=== PATIENT | male | born 1960 | race Caucasian/White ===

== ENCOUNTER → 2017-12-05 07:07 | Outpatient (CLI) | payer MEDICAID, SELFPAY ==
[2017-12-05 07:56] LABS: Abs Immature Grans 0.05 k/cumm (0.0-0.09); Absolute Basophil Count 0.02 k/cumm (0.0-0.2); Absolute Eosinophil Count 0.08 k/cumm (0.0-0.7); Absolute Lymphocyte Count 0.65 k/cumm (1.2-3.4); Absolute Monocyte Count 0.67 k/cumm (0.11-0.7); Absolute Neutrophil Count 5.15 k/cumm (1.2-6.7); Basophils % 0.3; Eosinophils % 1.2; HCT 45.1 % (40.0-50.0); HGB 15.4 g/dL (13.5-17.5); Immature Grans % 0.8; Lymphocytes % 9.8; Mean Corp. HGB Concentration 34.1 g/dL (32.0-36.0); Mean Corpuscular Hemoglobin 32.4 pg (27.0-33.0); Mean Corpuscular Volume 94.7 fL (80-95); Mean Platelet Volume 10.4 fL (8.0-11.0); Monocytes % 10.1; Neutrophils % 77.8; Platelet Count 189 x1000/uL (130-400); RBC 4.76 m/cumm (4.50-6.00); RBC Distribution Width 14.2 % (11.8-14.1); White Blood Cell Count 6.62 k/cumm (4.4-10.8)
[2017-12-05 08:15] LABS: ALT 50 U/L (12-78); AST 39 U/L (15-37); Albumin 3.6 g/dL (3.4-5.0); Alkaline Phosphatase 66 U/L (46-116); Anion Gap 9.4 mmol/L (3-11); BUN 15 mg/dL (7-18); Bilirubin, Total 0.5 mg/dL (0.2-1.0); CO2 27.6 mmol/L (21.0-32.0); CREATININE 0.91 mg/dL (0.70-1.30); Calcium 8.4 mg/dL (8.5-10.1); Chloride 103 mmol/L (98-107); Glucose 93 mg/dL (70-100); Potassium 4.2 mmol/L (3.5-5.1); Sodium 140 mmol/L (136-145); Total Protein 7.1 g/dL (6.4-8.2)
[2017-12-05 08:21] LABS: TSH 3.52 uIU/mL (0.358-3.74)
== END ==
PROVIDERS: PCP Family Medicine; Visit Provider Nurse Practitioner Adult Health
DX: C76.0 Malignant neoplasm of head, face and neck (principal); C09.9 Malignant neoplasm of tonsil, unspecified; E03.9 Hypothyroidism, unspecified
CPT/HCPCS: 36415; 80053; 83735; 84443; 85025

== ENCOUNTER → 2017-12-16 01:46 | Outpatient (CLI) | payer MEDICAID, SELFPAY ==
[2017-12-16] MEDS: Omnipaque 350 MG/ML 100 ML BTL IJ (11:37)
--- NOTE | 2017-12-16 11:40 | DI.RPTCT_ITS ---
SYMPTOM/DIAGNOSIS: H/O HEAD AND NECK CA, S/P TREATMENT, F/U, EVALUATE FOR RECURRENCE OR METS, C09.[address]: Comparison is made with 08/12/16. Images were performed from above the internal auditory canals through the aortic arch after IV contrast. No tonsillar mass or fluid collection is visible. Enlarged lymph node on the left side of the neck is no longer seen. A chronic appearing deformity of the thyroid cartilage is noted. The visualized portions of the brain are grossly normal. Degenerative changes are seen in the cervical spine. No destructive bony lesions are identified. IMPRESSION: No evidence of recurrent tonsillar mass or adenopathy. CHEST CT: There are no prior comparison exams. Images were performed from the clavicles through the mid portion of the kidneys after IV contrast. The heart size is normal. There is minimal calcification at the aortic arch. No adenopathy, pleural or pericardial effusions are seen. Emphysematous changes are noted in the upper lobes. No pulmonary nodules, lytic or blastic bony lesions are identified. The visualize d portions of the upper abdomen are unremarkable. IMPRESSION: Upper lobe emphysematous changes. No evidence of metastatic disease to the chest.
== END ==
PROVIDERS: PCP Family Medicine; Visit Provider Nurse Practitioner Adult Health
DX: C09.9 Malignant neoplasm of tonsil, unspecified (principal); Z92.21 Personal history of antineoplastic chemotherapy; Z12.89 Encounter for screening for malignant neoplasm of other sites; J43.9 Emphysema, unspecified
CPT/HCPCS: 70491; 71260; J3490

== ENCOUNTER 2018-03-23 07:02 | Outpatient (CLI) | payer OTHER, SELFPAY ==
[2018-03-23 08:18] LABS: TSH 7.86 uIU/mL (0.358-3.74)
== END 2018-03-23 07:22 ==
PROVIDERS: PCP Family Medicine; Visit Provider Nurse Practitioner Adult Health
DX: C09.9 Malignant neoplasm of tonsil, unspecified (principal); E03.9 Hypothyroidism, unspecified
CPT/HCPCS: 36415; 84443

== ENCOUNTER 2018-08-30 02:03 | Outpatient (CLI) | payer OTHER, SELFPAY ==
[2018-08-30 10:42] LABS: TSH 5.43 uIU/mL (0.358-3.74)
[2018-09-01 11:12] LABS: FREE T4 0.89 ng/dL (0.76-1.46)
== END 2018-08-30 02:23 ==
PROVIDERS: PCP Family Medicine; Visit Provider Nurse Practitioner Adult Health
DX: E03.9 Hypothyroidism, unspecified (principal); R79.89 Other specified abnormal findings of blood chemistry
CPT/HCPCS: 36415; 84439; 84443

== ENCOUNTER 2019-11-24 15:22 | Outpatient (CLI) | payer OTHER, SELFPAY ==
[2019-11-24 15:58] LABS: TSH 25.37 uIU/mL (0.36-3.74)
== END 2019-11-24 15:42 ==
PROVIDERS: PCP Family Medicine; Visit Provider Preventive Medicine Undersea and Hyperbaric Medicine
DX: C09.9 Malignant neoplasm of tonsil, unspecified (principal)
CPT/HCPCS: 36415; 84443

== ENCOUNTER 2020-03-14 01:22 | Outpatient (CLI) | payer MEDICAID, SELFPAY ==
[2020-03-14 08:42] LABS: TSH 5.44 uIU/mL (0.36-3.74)
== END 2020-03-14 01:42 ==
PROVIDERS: PCP Family Medicine; Visit Provider Preventive Medicine Undersea and Hyperbaric Medicine
DX: C09.9 Malignant neoplasm of tonsil, unspecified (principal)
CPT/HCPCS: 36415; 84443

== ENCOUNTER 2020-06-12 01:58 | Outpatient (CLI) | payer MEDICAID, SELFPAY | END 2020-06-12 01:59 | disposition home or self-care (01) | LOC: LBO 01:58 | PROVIDERS: PCP Family Medicine; Visit Provider Internal Medicine Hematology & Oncology | DX: E03.9 Hypothyroidism, unspecified (principal); C09.9 Malignant neoplasm of tonsil, unspecified | CPT/HCPCS: 36415; 84443 ==

== ENCOUNTER 2021-07-11 02:41 | Outpatient (CLI) | payer MEDICAID, SELFPAY ==
[2021-07-11 14:59] LABS: TSH 7.45 uIU/mL (0.36-3.74)
== END 2021-07-11 02:42 | disposition home or self-care (01) ==
PROVIDERS: PCP Family Medicine; Visit Provider Internal Medicine Hematology & Oncology
DX: E03.9 Hypothyroidism, unspecified (principal)
CPT/HCPCS: 36415; 84443

== ENCOUNTER 2021-08-14 13:29 | Emergency (ER) | payer MEDICAID, SELFPAY ==
[2021-08-14 13:43] VITALS: BP 136/92; PULSE 96; RESP 18; TEMP 37.4; O2SAT 97
[2021-08-14 14:19] LABS: Abs Immature Grans 0.06 10^3/uL (0.0-0.06); Absolute Basophil Count 0.02 10^3/uL (0.0-0.2); Absolute Eosinophil Count 0.02 10^3/uL (0.0-0.7); Absolute Lymphocyte Count 0.51 10^3/uL (1.2-3.4); Absolute Monocyte Count 0.61 10^3/uL (0.1-0.8); Absolute Neutrophil Count 6.34 10^3/uL (1.2-6.7); Basophils % 0.3; Eosinophils % 0.3; HGB 14.5 g/dL (13.5-17.5); Immature Grans % 0.8; Lymphocytes % 6.7; MCH 33.5 pg (27.0-33.0); MCHC 35.4 % (32.0-36.0); MCV 95 fL (80-95); MPV 11.6 fL (8.0-11.0); Monocytes % 8.1; Neutrophils % 83.8; RBC 4.33 10^6/uL (4.36-5.78); RDW 11.9 % (11.8-14.1); RDW-SD 42.2 fL; WBC 7.56 10^3/uL (4.4-10.8)
--- NOTE | 2021-08-14 14:30 | RT.EKG_ITS ---
APPROVED REPORT Exam: Resting ECG Reason for Exam: electrolyte abnormal Patient Location: E HR:82 bpm ECG Measurements Heart Rate 82 AXIS MD 172 P 58 QRSd 74 QRS 42 QT 394 T 35 QTc 461 Conclusion Sinus rhythm...normal P axis, V-rate 60- 99 Probable left atrial enlargement...P >50mS, <-0.10mV V1. Sinus. Normal axis. No STEMI. I have reviewed and interpreted ECG and agree with software generated interpretation.
[2021-08-14 14:31] LABS: Platelet Count 88 10^3/uL (130-400)
[2021-08-14 14:33] LABS: ALT 132 U/L (16-63); AST 110 U/L (15-37); Albumin 3.1 g/dL (3.4-5.0); Alkaline Phosphatase 112 U/L (46-116); Anion Gap 10.3 mmol/L (3-11); BUN 6 mg/dL (7-18); Bilirubin, Total 1.7 mg/dL (0.2-1.0); CO2 24.7 mmol/L (21.0-32.0); CREATININE 0.8 mg/dL (0.70-1.30); Calcium 7.5 mg/dL (8.5-10.1); Chloride 90 mmol/L (98-107); Glucose 86 mg/dL (74-106); Potassium 3.4 mmol/L (3.5-5.1); Sodium 125 mmol/L (136-145); Total Protein 5.9 g/dL (6.4-8.2)
[2021-08-14] MEDS: Normal Saline 1,000 ML 1000 ML IV (14:46)
[2021-08-14 14:51] VITALS: BP 121/77; PULSE 88; RESP 18; O2SAT 98
[2021-08-14 14:52] LABS: Lipase 222 U/L (73-393); Magnesium 1.9 mg/dL (1.8-2.5); TSH (W/Ref FT4) 54.22 uIU/mL (0.36-3.74)
[2021-08-14 15:10] LABS: FREE T4 0.46 ng/dL (0.76-1.46)
--- NOTE | 2021-08-14 15:24 | ED.GENADUL_ITS ---
Discharge Plan Disposition Patient Disposition: HOME Condition: Serious Discharge Details Clinical Impression: Hyponatremia, Hypocalcemia, Constipation, Abnormal transaminases Primary Care Provider: Jah Rees ED Provider: Adams Villalobos Home Meds and New Rx's Prescriptions: New calcium carbonate [Calcium 600] 600 mg calcium (1,500 mg) tablet 600 mg PO DAILY Qty: 30 0RF Continued ibuprofen 200 MG capsule 400 mg PO PRN PRN0RF levothyroxine 125 mcg tablet 125 mcg PO DAILY 0RF Label Comments: TAKE ONE TABLET BY MOUTH EVERY DAY Discharge Instructions Instructions: Constipation (ED), Hyponatremia (ED) Additional Instructions: Take calcium as prescribed You will need to increase your thyroid medication, talk to your doctor about dosing MiraLAX daily until you have a good bowel movement Sprinkle salt on your food at every meal as your sodium level is low This will need to be rechecked in 2-3 you will need to decrease your alcohol consumption, this is harming you, cut down by 1 drink daily until you are able to stop Please follow-up with your doctor tomorrow Discharge Data Discharge Date/Time-TO BE ENTERED AT DEPARTURE: 08/14/21 17:30 Medical Decision Making Patient will have hyponatremia, 125 which is new when compared to prior He has hypothyroidism, he will likely need to increase his Synthroid Calcium is also quite low adjusted 7.7 He was given calcium IV, 1 G IV and placed on po home supplementation He was given NS in ED He will need to sprinkle salt on his food daily We have discussed cutting down on his alcohol consumption, discussed taper with patient and withdrawal risks He is given a prescription for MiraLAX to help with bowel movement Patient has concerning diagnostic labs, he will need very close outpatient follow-up He declines admission at this time and is fully alert, oriented, decisional capacity He has no obvious signs of hypocalcemia on physical exam EKG does not show qtc abnormality or any additional dysrhythmia placed on care management list for urgent f/u dc'd home in care of mother 1630: Adams Villalobos PA-C I assumed care of this 61-year-old gentleman from my colleague LAKESHIA Blanco, please see her initial HPI and examination. In short patient presented initially for constipation, found to have hyponatremia, hypothyroidism, and hypocalcemia. IV calcium provided and admission was recommended but patient declines. At time of signout he is receiving his IV calcium and the disposition will be home once the IV calcium has finished infusing. I personally evaluated the patient, he is resting comfortably, no acute concerns or complaints. He appears well, nontoxic. Patient understands that admission was recommended but he declines. He will follow the discharge instructions set forth by LAKESHIA Blanco and will contact his primary care provider tomorrow to discuss his ER visit, ongoing symptoms, and need for outpatient reevaluation and blood redraw to monitor his electrolyte abnormalities and hypothyroidism. Strict discharge and return precautions were provided. Patient and mother have no additional questions or concerns. This documentation was generated using [employer] system, please disregard any oddities of phrase or misspellings. Medical Records Medical records reviewed: Yes I reviewed the patient's medical records. Lab Data Lab results reviewed: Yes I reviewed the patient's lab results. ECG Data Prior ECG tracings: available for review HPI General Date/Time Provider Initiated Documentation: 08/14/21 13:48 . HPI Narrative: This 61-year-old gentleman with history of alcoholism presents with report of dark stools and lightheadedness. He denies any chest pain or shortness of breath. He denies any dizziness. He denies any history of coagulopathy. He drinks reportedly 4-5 drinks daily. He denies any falls or injuries. He denies any anticoagulation. Denies any history of alcohol withdrawal. Denies any abdominal pain or chest pain. Related Data Home Medications Medication Instructions Recorded Confirmed ibuprofen 200 mg capsule 400 mg PO PRN PRN 08/12/16 08/14/21 calcium carbonate 600 mg calcium 600 mg PO DAILY #30 tab 08/14/21 (1,500 mg) tablet (Calcium) levothyroxine 125 mcg tablet 125 mcg PO DAILY 08/14/21 08/14/21 Previous Rx's Medication Instructions Recorded calcium carbonate 600 mg calcium 600 mg PO DAILY #30 tab 08/14/21 (1,500 mg) tablet (Calcium) Allergies Allergy/AdvReac Type Severity Reaction Status Date / Time No Known Allergies Allergy Unverified 08/14/21 13:51 General Stated Complaint: GI Bleed ELISEO: 3 Review of Systems All systems reviewed & are unremarkable except as noted in HPI and below PFSH All Active Problems (Updated 08/14/21 @ 16:39 by Krystal Francis, PA) Hyponatremia (Acute) Hypocalcemia (Acute) Constipation (Acute) Abnormal transaminases (Acute) Family History Mother No problems noted. Father Smokeless tobacco use Sister No problems noted. Brother Smokeless tobacco use Grandfather Stroke Grandfather No problems noted. Grandmother Heart disease Grandmother No problems noted. Social History Smoking/Tobacco Use Status: Former Tobacco Use Smoking risk assessment performed?: Yes Alcohol Intake: current Alcohol Intake frequency: 0-2 drinks per day Alcohol type: beer Drug use: Never Substance use type: does not use Do you feel safe at home: Yes Do you feel safe in your relationship?: Yes Exam Const General: cooperative, comfortable and frail appearing HENMT Head: normal to inspection Mouth: oral mucosae normal Eyes Pupils: PERRL Resp Effort & Inspection: normal respiratory effort Auscultation: clear to auscultation bilaterally Cardio Rate: regular rate Rhythm: regular rhythm GI Inspection: normal to inspection Other: No abdominal tenderness or ecchymosis Other: Light brown stool noted, guaiac negative for blood Skin General skin exam: no rashes or lesions noted Neuro General: patient alert and patient oriented x3 Cognition: normal cognition Speech: speech normal Gait: normal gait Extrem General: normal to inspection Course Vital Signs Vital signs: Vital Signs Temperature 37.4 C 08/14/21 13:43 Pulse 96 H 08/14/21 13:43 Respiratory Rate 18 08/14/21 13:43 Blood Pressure 136/92 H 08/14/21 13:43 Pulse Oximetry 97 08/14/21 13:43 Temperature 37.4 C 08/14/21 13:43 Temperature Source Oral 08/14/21 13:43 Pulse 88 08/14/21 14:51 Respiratory Rate 18 08/14/21 14:51 Respiratory Effort Non-Labored 08/14/21 13:47 Blood Pressure 121/77 08/14/21 14:51 Blood Pressure Position Sitting 08/14/21 13:43 Pulse Oximetry 98 08/14/21 14:51 Oxygen Delivery Method Room Air 08/14/21 14:51 Oxygen Flow Rate 0 08/14/21 14:51 Pain Level 0 08/14/21 13:43 Lab/Test Results Lab/Test Results: Laboratory Tests Range/Units 08/14/21 08/14/21 08/14/21 14:00 14:00 14:00 WBC (4.4-10.8) 10^3/uL 7.56 RBC (4.36-5.78) 10^6/uL 4.33 L Hgb (13.5-17.5) g/dL 14.5 Hct (40.0-50.0) % 41.0 MCV (80-95) fL 95 MCH (27.0-33.0) pg 33.5 H MCHC (32.0-36.0) % 35.4 RDW (11.8-14.1) % 11.9 Plt Count (130-400) 10^3/uL 88 L MPV (8.0-11.0) fL 11.6 H Immature Gran % 0.8 Neutrophils % 83.8 Lymphocytes % 6.7 Monocytes % 8.1 Eosinophils % 0.3 Basophils % 0.3 Nucleated RBC % (0.0-0.3) % 0.0 Absolute Neutrophils (1.2-6.7) 10^3/uL 6.34 Absolute Lymphocytes (1.2-3.4) 10^3/uL 0.51 L Absolute Monocytes (0.1-0.8) 10^3/uL 0.61 Absolute Eosinophils (0.0-0.7) 10^3/uL 0.02 Absolute Basophils (0.0-0.2) 10^3/uL 0.02 Sodium (136-145) mmol/L 125 L Potassium (3.5-5.1) mmol/L 3.4 L Chloride (98-107) mmol/L 90 L Carbon Dioxide (21.0-32.0) mmol/L 24.7 Anion Gap (3-11) mmol/L 10.3 BUN (7-18) mg/dL 6 L Creatinine (0.70-1.30) mg/dL 0.8 Estimated GFR/1.73 m2 (mL/min/1.73m2) >= 60.00 Glucose (74-106) mg/dL 86 Calcium (8.5-10.1) mg/dL 7.5 L Magnesium (1.8-2.5) mg/dL Total Bilirubin (0.2-1.0) mg/dL 1.7 H AST (15-37) U/L 110 H ALT (16-63) U/L 132 H Alkaline Phosphatase (46-116) U/L 112 Total Protein (6.4-8.2) g/dL 5.9 L Albumin (3.4-5.0) g/dL 3.1 L Lipase (73-393) U/L TSH (0.36-3.74) uIU/mL Free T4 (0.76-1.46) ng/dL Patient ABO/Rh A Positive Antibody Screen NEGATIVE Range/Units 08/14/21 14:09 WBC (4.4-10.8) 10^3/uL RBC (4.36-5.78) 10^6/uL Hgb (13.5-17.5) g/dL Hct (40.0-50.0) % MCV (80-95) fL MCH (27.0-33.0) pg MCHC (32.0-36.0) % RDW (11.8-14.1) % Plt Count (130-400) 10^3/uL MPV (8.0-11.0) fL Immature Gran % Neutrophils % Lymphocytes % Monocytes % Eosinophils % Basophils % Nucleated RBC % (0.0-0.3) % Absolute Neutrophils (1.2-6.7) 10^3/uL Absolute Lymphocytes (1.2-3.4) 10^3/uL Absolute Monocytes (0.1-0.8) 10^3/uL Absolute Eosinophils (0.0-0.7) 10^3/uL Absolute Basophils (0.0-0.2) 10^3/uL Sodium (136-145) mmol/L Potassium (3.5-5.1) mmol/L Chloride (98-107) mmol/L Carbon Dioxide (21.0-32.0) mmol/L Anion Gap (3-11) mmol/L BUN (7-18) mg/dL Creatinine (0.70-1.30) mg/dL Estimated GFR/1.73 m2 (mL/min/1.73m2) Glucose (74-106) mg/dL Calcium (8.5-10.1) mg/dL Magnesium (1.8-2.5) mg/dL 1.9 Total Bilirubin (0.2-1.0) mg/dL AST (15-37) U/L ALT (16-63) U/L Alkaline Phosphatase (46-116) U/L Total Protein (6.4-8.2) g/dL Albumin (3.4-5.0) g/dL Lipase (73-393) U/L 222 TSH (0.36-3.74) uIU/mL 54.22 H Free T4 (0.76-1.46) ng/dL 0.46 L Patient ABO/Rh Antibody Screen Sign Out Sign Out Data: Sign Out Comment: pending calcium gluconate infusion Last updated by Krystal Blanco PA at 08/14/21 16:20 PAWSS Have you Been Recently Intoxicated or Drunk Within the Last 30 days?: No Have you Ever Experienced Previous Episodes of Alcohol Withdrawal?: No Have you ever Experienced Withdrawal Seizures?: No Have you ever Experienced Delirium Tremens(DT)s?: No Have you ever undergone Alcohol Rehabilitation Treatment (i.e, inpt ot outpatient treatment programs)?: No Have you ever Experienced Blackouts?: No Have you ever Combined Alcohol with other Downers within the last 90 days?: No Have you ever Combined Alcohol with any other Substance of Abuse during the last 90 days?: No Positive Blood Alcohol level on Presentation? [PCS.BAL]: No Evidence of Increased Autonomic Activity (i.e. HR>120, tremor, sweating, agitation, nausea)?: No Result: 0
[2021-08-14 16:04] VITALS: BP 151/89; PULSE 95; RESP 18; O2SAT 97
[2021-08-14 16:27] LABS: Calcium 7.8 mg/dL (8.5-10.1)
[2021-08-14] MEDS: CALCIUM GLUCONATE in NaCl 1 GM/50 ML BAG IVPB (16:29)
[2021-08-14 16:31] LABS: PHOSPHORUS 3.4 mg/dL (2.6-4.7)
[2021-08-14 16:53] VITALS: BP 139/89; PULSE 97; O2SAT 97
[2021-08-16 06:57] LABS: Vitamin D 25 Total < 5 ng/mL (30-100)
== END 2021-08-14 17:30 | disposition home or self-care (01) ==
PROVIDERS: Physician Assistant; Emergency Provider Physician Assistant; PCP Family Medicine
DX: E87.1 Hypo-osmolality and hyponatremia (principal); E83.51 Hypocalcemia; K59.00 Constipation, unspecified; R79.89 Other specified abnormal findings of blood chemistry; E03.9 Hypothyroidism, unspecified
CPT/HCPCS: 36415; 80053; 82306; 83690; 86850; 86900; 86901; 93005; 96361; 96365; 99284; 82310; 83735; 84100; 84439; 84443; 85025; 93010

== ENCOUNTER 2021-09-04 01:18 | Outpatient (CLI) | payer MEDICAID, SELFPAY ==
[2021-09-04 09:46] LABS: ALT 35 U/L (16-63); AST 32 U/L (15-37); Albumin 2.8 g/dL (3.4-5.0); Alkaline Phosphatase 105 U/L (46-116); Anion Gap 9.3 mmol/L (3-11); BUN 5 mg/dL (7-18); Bilirubin, Total 0.6 mg/dL (0.2-1.0); CO2 27.7 mmol/L (21.0-32.0); CREATININE 0.9 mg/dL (0.70-1.30); Calcium 8.5 mg/dL (8.5-10.1); Chloride 105 mmol/L (98-107); Glucose 137 mg/dL (74-106); Potassium 4.4 mmol/L (3.5-5.1); Sodium 142 mmol/L (136-145); Total Protein 5.7 g/dL (6.4-8.2)
== END 2021-09-04 01:19 | disposition home or self-care (01) ==
LOC: LBO 01:18
PROVIDERS: PCP Family Medicine; Visit Provider Family Medicine
DX: R10.9 Unspecified abdominal pain (principal)
CPT/HCPCS: 36415; 80053

== ENCOUNTER 2021-09-25 01:59 | Outpatient (CLI) | payer MEDICAID, SELFPAY ==
--- NOTE | 2021-09-25 10:00 | DI.CTLCSR_ITS ---
Exam(s) CT CHEST LUNG CANCER SCREEN EXAM: CT CHEST LUNG CANCER SCREEN CLINICAL HISTORY: SCREENING FOR LUNG CA,CURRENT SMOKER, F17.210. TECHNIQUE: Imaging Protocol: Low Dose Technique CONTRAST MATERIAL: None FINDINGS: CHEST: LUNGS: Benign-appearing increased markings in the medial segment of the right middle lobe are unchang ed. There are no new ominous pulmonary nodules, new infiltrates, nor pleural effusions. There are n o new significant focal findings in the trachea and mainstem bronchi.. MEDIASTINUM: There is no obvious hilar nor mediastinal adenopathy. CARDIAC: Heart size is normal. There is no pericardial effusion.Caliber of the thoracic aorta is wit hin normal limits. OTHER: No adrenal masses. The lower most images of this low-dose chest study reveal a partially incl uded partial calcified abnormality in the anterior aspect of the left kidney which for undergo furthe r study rule out concerning lesion at this level OSSEOUS: No significant osseous lesions.No fractures.. IMPRESSION: 1. No significant pulmonary nodules, new infiltrates, or pleural effusions. 2. Lower most images of this chest study reveal a partially calcified finding in the anterior cortex of the left kidney which is only partially included in the field of view of this low-dose chest study and should be further investigated. 3. Lung RADS Cat 1 - Negative: No nodules and definitely benign nodules S: Left kidney finding as above Lung-RADS 1.0 CATEGORIES: Category 0 - Prior chest CT exam(s) being located for comparison. Category 1 - Annual screening in 12 months. No nodules or definitely benign nodules. Category 2 - Annual screening in 12 months. Benign appearance. Nodules with low likelihood of becomin g active cancer. Category 3 - 6-month follow-up. Probably benign. Short-term follow-up suggested. Nodules with low lik elihood of becoming active cancer. Category 4A - 3-month follow-up and CT/PET if >8 mm in size. Suspicious finding. Findings which requi re additional testing. Category 4B - Findings which require additional testing and tissue sampling. Category 4X - Category 3 or 4 nodules with additional features or imaging findings that increases the suspicion of malignancy. Modifier S- Potentially clinically significant findings (non lung cancer) RADIATION DOSE DELIVERED: 77.99mGy.cm Total DLP 1.84mGyCTDIvol DATA REPOSITORY: All CT scans at this facility are submitted to the National Radiology Data Registry (NRDR) Dose Index Registry (DIR) with the [employer] (ACR). RADIATION OPTIMIZATION: All CT scans at this facility use at least one of these dose optimization te chniques: automated exposure control; mA and/or kV adjustment per patient size (includes targeted exa ms where dose is matched to clinical indication); or iterative reconstruction.
[2021-09-25 10:07] LABS: TSH (W/Ref FT4) 0.05 uIU/mL (0.36-3.74)
[2021-09-25 10:25] LABS: FREE T4 1.11 ng/dL (0.76-1.46)
== END 2021-09-25 02:00 | disposition home or self-care (01) ==
PROVIDERS: PCP Family Medicine; Visit Provider Internal Medicine Hematology & Oncology
DX: Z12.2 Encounter for screening for malignant neoplasm of respiratory organs (principal); F17.210 Nicotine dependence, cigarettes, uncomplicated; E03.9 Hypothyroidism, unspecified; N28.89 Other specified disorders of kidney and ureter
CPT/HCPCS: 36415; 71271; 84439; 84443

== ENCOUNTER 2021-11-20 04:06 | Outpatient (CLI) | payer MEDICAID, SELFPAY | END 2021-11-20 04:07 | disposition home or self-care (01) | LOC: LBO 04:06 | PROVIDERS: PCP Family Medicine; Visit Provider Internal Medicine Hematology & Oncology | DX: E03.9 Hypothyroidism, unspecified (principal) | CPT/HCPCS: 36415; 84443 ==

== ENCOUNTER 2023-04-07 04:49 | Outpatient (CLI) | payer MEDICARE, SELFPAY ==
[2023-04-07 10:57] LABS: Abs Immature Grans 0.03 10^3/uL (0.0-0.06); Absolute Basophil Count 0.03 10^3/uL (0.0-0.2); Absolute Eosinophil Count 0.04 10^3/uL (0.0-0.7); Absolute Lymphocyte Count 0.73 10^3/uL (1.2-3.4); Absolute Monocyte Count 0.59 10^3/uL (0.1-0.8); Absolute Neutrophil Count 4.26 10^3/uL (1.2-6.7); Basophils % 0.5; Eosinophils % 0.7; HCT 48.7 % (40.0-50.0); HGB 16.2 g/dL (13.5-17.5); Immature Grans % 0.5; Lymphocytes % 12.9; MCH 31.5 pg (27.0-33.0); MCHC 33.3 % (32.0-36.0); MCV 95 fL (80-95); MPV 10.4 fL (8.0-11.0); Monocytes % 10.4; Platelet Count 176 10^3/uL (130-400); RBC 5.15 10^6/uL (4.36-5.78); RDW 13.1 % (11.8-14.1); RDW-SD 45.9 fL; WBC 5.68 10^3/uL (4.4-10.8)
[2023-04-07 11:55] LABS: ALT 65 U/L (16-63); AST 49 U/L (15-37); Albumin 3.5 g/dL (3.4-5.0); Alkaline Phosphatase 76 U/L (46-116); Anion Gap 9.6 mmol/L (3-11); BUN 7 mg/dL (7-18); Bilirubin, Total 0.6 mg/dL (0.2-1.0); CO2 27.4 mmol/L (21.0-32.0); CREATININE 0.9 mg/dL (0.70-1.30); Calcium 8.3 mg/dL (8.5-10.1); Chloride 101 mmol/L (98-107); Estimated GFR 94.78 (mL/min/1.73m2); Glucose 126 mg/dL (74-106); Potassium 4.1 mmol/L (3.5-5.1); Sodium 138 mmol/L (136-145); TSH 0.02 uIU/mL (0.36-3.74)
== END 2023-04-07 04:50 | disposition home or self-care (01) ==
PROVIDERS: PCP Family Medicine; Visit Provider Student in an Organized Health Care Education/Training Program
DX: C09.9 Malignant neoplasm of tonsil, unspecified (principal); E03.9 Hypothyroidism, unspecified
CPT/HCPCS: 36415; 80053; 84443; 85025

== ENCOUNTER → 2023-04-24 00:21 | Outpatient (CLI) | payer MEDICARE, SELFPAY ==
--- NOTE | 2023-04-24 07:00 | DI.US_ITS ---
Exam(s) US ABDOMEN LIMITED EXAM: US ABDOMEN LIMITED CLINICAL HISTORY: abd distension;hx of alcohol excess,r10.9 TECHNIQUE: Ultrasound abdomen performed using standard protocol. COMPARISON: CT CT CHEST LUNG CANCER SCREEN from 09/25/2021 FINDINGS: LIVER: Mildly enlarged at 18 cm in length.. Increased echogenicity consistent with mild to moderate hepatic steatosis.Echogenicity. No focal liver lesions are seen.. GALLBLADDER: No evidence of cholelithiasis. No evidence of wall thickening. No pericholecystic fluid identified. GRIMES'S SIGN: Negative. BILIARY SYSTEM: No intrahepatic or extrahepatic biliary ductal dilation. RIGHT KIDNEY: Normal size. No evidence of renal calculi. No evidence of hydronephrosis. No suspicious renal mass. No cyst identified. PANCREAS: Normal where visualized. ABDOMINAL AORTA AND IVC: Visualized portions normal caliber. ASCITES: None seen. IMPRESSION: Ilcn-yz-[id number] hepatic steatosis. DATA REPOSITORY:
== END ==
PROVIDERS: PCP Family Medicine; Visit Provider Family Medicine
DX: K76.0 Fatty (change of) liver, not elsewhere classified (principal)
CPT/HCPCS: 76705

== ENCOUNTER 2023-06-18 09:44 | Outpatient (CLI) | payer MEDICARE, SELFPAY ==
[2023-06-18 12:57] LABS: Hemoglobin A1C 4.6 % (<5.7)
[2023-06-18 13:03] LABS: Calculated LDL 61 mg/dL (<100); Cholesterol 149 mg/dL (<200); HDL Cholesterol 81 mg/dL (40-60); Triglyceride 36 mg/dL (<150)
== END 2023-06-18 09:45 | disposition home or self-care (01) ==
LOC: LOS 09:44
PROVIDERS: PCP Family Medicine; Referring Provider Family Medicine; Visit Provider Family Medicine
DX: E78.5 Hyperlipidemia, unspecified (principal); E11.51 Type 2 diabetes mellitus with diabetic peripheral angiopathy without gangrene
CPT/HCPCS: 36415; 80061; 83036

== ENCOUNTER 2024-10-30 13:22 | Emergency (ER) | payer MEDICARE, SELFPAY ==
[2024-10-30 13:27] VITALS: BP 138/96; PULSE 95; RESP 16; TEMP 36.8; O2SAT 98
[2024-10-30 13:30] VITALS: BP 138/96; PULSE 95; RESP 16; TEMP 36.8; O2SAT 98
--- NOTE | 2024-10-30 13:52 | W.ED.GENAD ---
Discharge Plan Disposition Patient Disposition: Home Discharge Details Clinical Impression: Rectal mass Primary Care Provider: Jah Rees ED Provider: Erika Medina Home Meds and New Rx's Prescriptions: No Action levothyroxine 175 mcg capsule 175 mcg PO DAILY Qty: 90 3RF Discharge Instructions Additional Instructions: the lesions of your rectum do not appear to be hemorrhoids and I am concerned that this is an abnormal lesion. You have been referred to general surgery for urgent follow-up so that you can get a biopsy of this area. Until that time, use the water bottle provided to help with cleaning. use the topical medications provided 3 times daily and reapply after bowel movements start over the counter colace twice daily to help soften stools and make bowel movements easier HPI General Date/Time Provider Initiated Documentation: 10/30/24 13:30. Limitations to Documentation: no limitations. Information obtained by: patient. HPI Narrative: 64-year-old gentleman with past medical history of alcohol abuse, tonsillar cancer presents for evaluation of rectal pain. He reports that he has been having pain for the last 6 months. Pain has been progressively worsening and is now having severe pain with any sitting. He reports that he does have some constipation and difficulty with bowel movements stating that he does have to push pretty hard and strained to get them out. He states that he is having difficulty with wiping because of the significant pain. Related Data Home Medications ?Medication ?Instructions ?Recorded ?Confirmed levothyroxine 175 mcg capsule 175 mcg PO DAILY #90 caps 08/28/21 10/30/24 Previous Rx's ?Medication ?Instructions ?Recorded levothyroxine 175 mcg capsule 175 mcg PO DAILY #90 caps 08/28/21 Allergies Allergy/AdvReac Type Severity Reaction Status Date / Time No Known Allergies Allergy Unverified 10/30/24 13:30 General Stated Complaint: GenMedical ELISEO: 4 Exam Narrative Exam Narrative: Review of Systems: All systems reviewed & are unremarkable except as noted in HPI and below Well-developed, no acute distress NCAT Rectum examined with RN chief lock operator, there are multiple lesions extending from the anus, the tissue is friable, lesions are tender, no active bleeding Course Vital Signs Vital signs: Vital Signs Temperature 36.8 C 10/30/24 13:27 Pulse 95 H 10/30/24 13:27 Respiratory Rate 16 10/30/24 13:27 Blood Pressure 138/96 H 10/30/24 13:27 Pulse Oximetry 98 10/30/24 13:27 Temperature 36.8 C 10/30/24 13:30 Pulse 95 H 10/30/24 13:30 Respiratory Rate 16 10/30/24 13:30 Blood Pressure 138/96 H 10/30/24 13:30 Pulse Oximetry 98 10/30/24 13:30 Pain Level 8 10/30/24 13:30 Medical Decision Making Emergent evaluation of rectal pain. Initial differential includes hemorrhoids, condyloma, malignancy. Patient thought that these external lesions were hemorrhoids, but based on their appearance I have a high suspicion for a malignancy. He has no active bleeding and is hemodynamically stable at this time he is able to have bowel movements. Recommending topical lidocaine and hydrocortisone for symptom improvement until he is able to get into surgery clinic for biopsy. Referral has been placed for urgent follow-up. Also recommend stool softeners to help with bowel movements. Return precautions advised Quality:SDOH Health Related Social Needs: Health related social needs details none PFSH All Active Problems (Updated 10/30/24 @ 13:45 by Erika Medina MD) Rectal mass (Acute) Hepatic steatosis (Acute) URI (upper respiratory infection) (Acute) Positive colorectal cancer screening using Cologuard test (Acute) Hypothyroidism (Chronic) Alcoholism (Acute) Family History (Updated 06/26/23 @ 17:56 by Belinda Mcmahan) Father Smokeless tobacco use Brother Smokeless tobacco use Paternal Grandfather Stroke Maternal Grandfather Heart disease Paternal Grandmother Heart disease Maternal Grandmother Cancer Social History (Updated 06/26/23 @ 17:53 by Belinda Mcmahan) Smoking/Tobacco Use Status: Former Tobacco Use tobacco type: cigarettes Quit Date: 04/28/17 Tobacco: How many years used: 40 Second Hand Exposure: No Smoking risk assessment performed?: Yes Alcohol Intake: current Alcohol Intake frequency: 3 or more drinks per day Alcohol type: beer Drug use: Never Substance use type: does not use Adopted: No Caregiver/Support person: No Household members: other Details: Parents Housing: house Communication Needs: Corrective Lenses Education Level: high school Do you need help understanding health information?: Never current occupation: retired Sexually active: No Do you think of yourself as: straight/heterosexual Current gender identity: male What is your relationship status?: never How often do you talk on the phone with friends or family?: decline to answer How often do you get together with friends or relatives?: decline to answer How often do you attend christian or quaker services?: decline to answer Do you belong to any clubs or organized social groups?: yes Panel score (0-1 are the most socially isolated patients): 1 What type of physical activity do you participate in: other Details: not much anymore Duration: decline to answer Frequency: decline to answer Clara/Evangelical: Gnosticism Special clara needs: No Seatbelt use: always Helmet use: No Drive intox or ride w/intox residential recycle driver: No Firearms in home: Yes Firearms unloaded and locked: Yes Do you feel safe at home: Yes Do you feel safe in your relationship?: Yes Victim of physical abuse: No Victim of emotional abuse: No Victim of sexual abuse: No Would you like helpful sources: No
== END 2024-10-30 14:25 | disposition home or self-care (01) ==
LOC: ER 14:23
PROVIDERS: Emergency Provider Emergency Medicine; PCP Family Medicine
DX: K62.89 Other specified diseases of anus and rectum (principal)
CPT/HCPCS: 99283 ×2; J3490

== ENCOUNTER → 2024-11-01 11:30 | Outpatient (BNVA) | payer MEDICARE, SELFPAY | PROVIDERS: PCP Family Medicine; Referring Provider Emergency Medicine; Visit Provider Surgery | DX: K62.89 Other specified diseases of anus and rectum (principal); K64.8 Other hemorrhoids; K76.0 Fatty (change of) liver, not elsewhere classified; F10.20 Alcohol dependence, uncomplicated; Z85.89 Personal history of malignant neoplasm of other organs and systems | CPT/HCPCS: 99204 ==

== ENCOUNTER 2024-11-04 13:21 | Day surgery (SDC) | payer MEDICARE, SELFPAY ==
[2024-11-04] VITALS (13 sets, daily range): BP systolic 124–148; BP diastolic 71–106; PULSE 70–86; RESP 16–20; TEMP 36–36.6; O2SAT 98–100; BMI 22.4
--- NOTE | 2024-11-04 14:01 | ANES.PREOP_ITS ---
General Info Date of Service Date Performed: 11/04/24 Height: 5 ft 4 in Weight: 59.1 kg Body Mass Index (BMI): 22.4 Surgical Procedure: Operation Date: 11/04/24 14:25 Proposed Procedure Side Surgeon p Exam Under Anesthesia Marietta Strong MD s Colonoscopy Marietta Strong MD Meds Allergies and Home Medications Allergies Allergy/AdvReac Type Severity Reaction Status Date / Time No Known Allergies Allergy Verified 11/04/24 13:35 Home Medication ?Medication ?Instructions ?Recorded levothyroxine 175 mcg capsule 175 mcg PO DAILY #90 cap s 08/28/21 bisacodyl 5 mg tablet,delayed 5 mg PO ONCE colonscopy bowel prep 11/01/24 release (Dulcolax (bisacodyl)) #4 tabs docusate sodium 100 mg capsule 100 mg PO BID 11/01/24 (Colace) lidocaine HCl 2 % mucosal jelly 1 applic topical TID P RN 11/01/24 polyethylene glycol 3350 17 238 g PO ONCE colonoscopy prep 11/01/24 gram/dose oral powder #238 grams Current Visit Medications: Current Medications Generic Name Dose Route Start Last Admin Trade Name Freq PRN Reason Stop Dose Admin Ringer's Solution 1,000 mls @ 80 mls/hr 11/04/24 06:00 IV 11/04/24 23:59 INFUSION BARBARA IV Miscellaneous Supplies 1 each 11/04/24 06:00 Iv Access IV 11/04/24 23:59 DIRECTED BARBARA Sodium Biphosphate/Sodium Phosphate 133 ml 11/04/24 06:00 Na Phosphate Enema-Adult 133 Ml Btl NM 11/04/24 23:59 ONCE PRN Sodium Chloride 0 ml 11/04/24 06:00 Normal Saline Flush 10 Ml Syr IV 11/04/24 23:59 PRN PRN Sodium Chloride 0 ml 11/04/24 06:00 Normal Saline 10 Ml Vial IJ 11/04/24 23:59 DIRECTED PRN Sterile Water 0 ml 11/04/24 06:00 Water,Injection,Sterile 10 Ml Vial IJ 11/04/24 23:59 DIRECTED PRN PFSH Active Problems Active Problems: Problem Status Onset Code History of squamous cell carcinoma Acute Z85.89 Alcohol dependence, daily use Acute F10.20 Internal and external prolapsed hemorrhoids Acute K64.8 Mass of anus Acute K62.89 Smoker Acute ~06/2024 F17.200 Rectal mass Acute K62.89 Hepatic steatosis Acute K76.0 URI (upper respiratory infection) Acute J06.9 Positive colorectal cancer screening using Cologuard test Acute R19.5 Hypothyroidism Chronic E03.9 Alcoholism Acute F10.20 Medical History Medical History Thyroid cancer pt reports radiation and chemo at [facility], Pt unsure of year states more than 5 years ago Tobacco Smoking/Tobacco Use Status: Current-Occasional Tobacco Type: cigarettes Passive smoking exposure: Yes Second hand exposure: No Alcohol Alcohol Intake: current Alcohol intake frequency: 3 or more drinks per day Alcohol type: beer Substance Use Substance use: Never Substance use type: does not use Vital Signs and Lab Results Vital Signs Most Recent Vital Signs in EMR: Most Recent Vital Signs Temp Pulse Resp BP Pulse Ox 36.1 C L 86 16 126/86 98 11/04/24 13:43 11/04/24 13:43 11/04/24 13:43 11/04/24 13:43 11/04/24 13:43 Anesthesia Assessment and Plan Anesthesia History Personal History: No History of Anesthesia Complications Family History: No Family History of Anesthesia Complications Exercise Tolerance Exercise Tolerance: Metabolic Equivalents>4 Pertinent Negatives Pertinent Negatives: No Symptoms of GERD, No Major Cardiovascular Symptoms or Complaints, No Major Pulmonary Symptoms or Complaints and No History of CVA/TIA Cardiac & Pulmonary Exam Cardiac Exam: Normal S1/S2 Heart Sounds Pulmonary Exam: Clear Bilateral Breath Sounds Implantable Cardiac Device Does patient have a Pacemaker or an ICD?: No Airway Exam Known Difficult Airway: No Mallampati Class: 2 Mouth Opening: Normal (> 3cm) Thyromental Distance: Greater than 3 cm Neck Range of Motion: Full ROM Neck Circumference: Normal Teeth Condition: Removable Dentures/Plates Upper and Removable Dentures/Plates Lower ASA Classification ASA Score: ASA 2 Emergency Case?: No NPO Status NPO Status: NPO Clears >2 hours, Solids >8 hours Anesthesia Plan Resuscitation Status: Full Code Anesthesia Technique: General Anesthesia Airway Planned: Natural Airway Monitors Used: Standard Monitors
[2024-11-04] MEDS: Lactated Ringers 1,000 ML 80 ML IV (14:20)
[2024-11-04] MEDS: Na Phosphate Enema-Adult 133 ML BTL PR (14:23)
--- NOTE | 2024-11-04 15:15 | BOWEL_PTH ---
PATIENT: Alin Cardoso LOC: [facility] U#:[id number] AGE/SX: 64/M ROOM: RE11/04/[address]: Marietta Strong MD : 1960 BED: DIS: 11/04/2024 SPEC #: [id number] RECD: 11/04/24 18:32 STATUS: BLAYNE REQ #: [id number] CLEMENTINE: 11/04/24 15:[address]: Marietta Strong DEPT: Surgical Specimen RECD BY: Krystal Phillips ENTERED: 11/04/24 18:34 SP TYPE: Bowel OTHR DR: Jah Rees MD Tissues: 1 - BIOPSY BOWEL 2 - BIOPSY BOWEL Procedures: GROSS AND MICRO LEVEL 4 Comments: [id number]
--- NOTE | 2024-11-04 15:33 | W.PM.DSUDISC ---
Date of service: 11/04/24 Discharge Plan Disposition Patient Disposition: Home Condition: Stable Discharge Details Reason For Visit: anus mass Attending Provider: Marietta Strong Primary Care Provider: Jah Rees Recommendations for Follow Up Recommended tests to be ordered by follow up provider: Follow up with Dr Strong as planned Home Meds and New Rx's Prescriptions: New hydrocodone-acetaminophen 5-325 mg tablet 1 tab PO Q6H Qty: 14 0RF No Action lidocaine HCl 2 % jelly 1 applic topical TID PRN docusate sodium [Colace] 100 mg capsule 100 mg PO BID bisacodyl [Dulcolax (bisacodyl)] 5 mg tablet,delayed release (DR/EC) 5 mg PO ONCE Qty: 4 0RF Rx Instructions: take per colonoscopy instructions polyethylene glycol 3350 17 gram/dose powder 238 g PO ONCE Qty: 238 0RF Rx Instructions: take per colonoscopy instructions levothyroxine 175 mcg capsule 175 mcg PO DAILY Qty: 90 3RF Discharge Instructions Instructions: How to Do a Sitz Bath Additional Instructions: Shower on 11/05/24. Wash gently around the skin of the biopsy site with soapy hands, rinse and pat dry. Apply the desitin ointment to the skin of the wound site for comfort and relief. Use a warm sitz bath three times daily for relief. Dry the skin well and reapply ointment afterward. Keep stools a toothpaste consistency to help avoid bulky painful stools through the surgical site. I expect to have your biopsy result back by the time you follow up with me in office. we will review it together and discuss next steps in care. Stand Alone Forms: Anesthesia Discharge InstNaveed Valera (DSU) Activity:: Activity as Tolerated Shower/Bathe:: 24 hours Diet:: As Tolerated Discharge Orders Discharge Orders: Discharge Order (Routine); Ordered 11/04/24 Ordered By: Marietta Strong DS: Diagnosis Discharge Diagnosis (1) Mass of anus: Status: Acute Asessment and Plan: Biopsy obtained from the mass lesions to determine what they are and to help determine a treatment course. Continue to use the recommended creams to help heal the area. DSpot bleeding from biopsy site is normal and expected. (2) Rectal polyp: Status: Acute Asessment and Plan: Multiple polyps of the rectum were seen and removed today. These are not causing your anus pain. Repeat colonoscopy will be recommended after results from polyp biopsies are back. We will review this in the office.
[2024-11-04] MEDS: Bupivacaine 0.5% Pres-Free W/EPI 30 ML VIAL (15:48)
[2024-11-04] MEDS: Bupivacaine LIPOSOME/PF 133 MG/10 ML VIAL IJ (15:53)
--- NOTE | 2024-11-04 16:13 | W.PM.OP ---
Operative Note Operative Note PRE-OP DIAGNOSIS: Mass of anus POST-OP DIAGNOSIS: other (1. mass of anus. 2. multiple rectum polyps) PROCEDURE: 1. Colonoscopy with polypectomy 2. Anal exam under anesthesia, biopsy of anal mass SURGEON: Marietta Strong ANESTHESIA TYPE: MAC Refer to Anesthesia Record ESTIMATED BLOOD LOSS: 5 PATHOLOGY: other (1. multiple rectum polyps. 2. Anal mass) COMPLICATIONS: None Patient was transported to: same day Patient's condition: stable Procedure Description: 64-year-old male with a mass of the anus. Mass is suspicious. We discussed an anal exam under anesthesia with colonoscopy for further evaluation. Procedure description, risks, benefits, alternatives and expectations were discussed and informed consent was obtained. He was taken to the operating room on the day of surgery. He was placed supine on the operating table. SCDs were placed and all pressure points were padded appropriately. General anesthesia was induced and a timeout performed. Preoperative antibiotics were given. He was then repositioned in lithotomy position with stirrups. A colonoscopy was performed. The colonoscope was advanced through the rectum to the cecum. The scope was then slowly withdrawn. The colon was normal without mass lesion or diverticulum. There were no sites of abnormality in the colon. In the distal rectum 10 cm from the anal verge there were multiple rectal polyps present. The polyps measured 1mm, 1mm, 4 mm and 7 mm in size and were sessile. Hot snare was used to remove the larger polyps and a suction trap was used to collect the polyp specimens. They were sent together as multiple rectum polyps. The tiny pinpoint polyps were then cauterized to destroy them. At the anal verge 2 additional 2 mm polyps were seen and cauterized and removed with hot snare. The scope was retroflexed and inflamed internal hemorrhoids were noted. There was leukoplakia of the internal hemorrhoidal mucosa. External exam suggested an anal stricture with significant condylomatous change of the external anal mucosa and the external hemorrhoids. There was perianal excoriation present, slightly improved on examination from his office visit. There is a condylomatous tag-like mass present from 9:00 to 3:00 that was inflamed and firm. Local anesthetic was infiltrated into the skin and a perianal block. A scalpel was used to incise the skin at the base of the lesion. LigaSure device was used to remove the large mass for biopsy. The mass was passed off the field specimen. Hemostasis was assured with point cautery. The remainder of the mass-like condylomatous change was left in place. The area was washed and dried and antibiotic ointment applied. The patient was taken out of lithotomy position. All sponge and instrument counts were correct at the end of the case. The patient tolerated the procedure well he woke from anesthesia in the operating room and transferred to the recovery room in stable condition. Date of Procedure: 11/04/24
--- NOTE | 2024-11-04 16:14 | W.ANESPOSTOP ---
Postoperative Evaluation Date, Time and Location Date Performed: 11/04/24 Time Performed: 16:14 Patient Location: PACU Vital Signs Most Recent Imported Vital Signs: Most Recent Vital Signs Temp Pulse Resp BP Pulse Ox 36.2 C L 80 18 141/71 H 100 11/04/24 16:08 11/04/24 16:08 11/04/24 16:08 11/04/24 16:08 11/04/24 16:08 Pain Score Most Recent Pain Score: Most Recent Pain Score Pain Level 2 11/04/24 13:43 Assessment Mental Status: Arousable with meaningful communication Airway and Respiratory Function: Patent airway with normal (patient baseline) respiratory exam Cardiovascular Function: Hemodynamically Stable Hydration Status: Adequately Hydrated Nausea & Vomiting: No Nausea or Vomiting Pain: Pain is tolerable per patient Peripheral Nerve Block: Patient did not receive a nerve block
== END 2024-11-04 17:09 | disposition home or self-care (01) ==
PROVIDERS: PCP Family Medicine; Visit Provider Surgery
PROC: (CPT 45385; principal; 2024-11-04 14:15)
PROC: 0DJD8ZZ Inspection of Lower Intestinal Tract, Via Natural or Artificial Opening Endoscopic (ICD-10-PCS; CPT 45378; 2024-11-04 14:15)
DX: K62.89 Other specified diseases of anus and rectum (principal); K62.1 Rectal polyp; Z85.89 Personal history of malignant neoplasm of other organs and systems; A63.0 Anogenital (venereal) warts
CPT/HCPCS: 45385; 45990; 88305; J0666; J1100; J2003; J2405; J2704

== ENCOUNTER → 2024-11-12 08:22 | Outpatient (BNVA) | payer MEDICARE, SELFPAY | PROVIDERS: PCP Family Medicine; Referring Provider Family Medicine; Visit Provider Surgery | DX: Z48.89 Encounter for other specified surgical aftercare (principal); A63.0 Anogenital (venereal) warts; R21 Rash and other nonspecific skin eruption | CPT/HCPCS: 99213 ==

== ENCOUNTER → 2024-11-19 09:08 | Outpatient (BNVA) | payer MEDICARE, SELFPAY | PROVIDERS: PCP Family Medicine; Referring Provider Family Medicine; Visit Provider Surgery | DX: A51.31 Condyloma latum (principal); R21 Rash and other nonspecific skin eruption | CPT/HCPCS: 99214 ==

== ENCOUNTER 2024-11-29 10:12 | Day surgery (SDC) | payer MEDICARE, SELFPAY ==
--- NOTE | 2024-11-29 | ANUSTAG_PTH ---
PATIENT: Alin Cardoso LOC: [facility] U#:[id number] AGE/SX: 64/M ROOM: RE11/29/[address]: Marietta Strong MD : 1960 BED: DIS: 11/29/2024 SPEC #: [id number] RECD: 11/29/24 17:24 STATUS: BLAYNE REQ #: [id number] CLEMENTINE: 11/29/24 00:[address]: Marietta Strong DEPT: Surgical Specimen RECD BY: Krystal Phillips ENTERED: 11/29/24 17:26 SP TYPE: Anus Tag OTHR DR: Jah Rees MD Tissues: 1 - ANUS TAG Procedures: GROSS AND MICRO LEVEL 4 Comments: [id number]
[2024-11-29 10:48] VITALS: BP 159/97; PULSE 111; RESP 20; TEMP 36.3; O2SAT 98
[2024-11-29] MEDS: Lactated Ringers 1,000 ML 80 ML IV (11:04)
--- NOTE | 2024-11-29 11:28 | ANES.PREOP_ITS ---
General Info Date of Service Date Performed: 11/29/24 Height: 5 ft 4 in Weight: 56.6 kg Body Mass Index (BMI): 21.4 Surgical Procedure: Operation Date: 11/29/24 11:25 Proposed Procedure Side Surgeon p Fulguration Anal Warts Marietta Strong MD Meds Allergies and Home Medications Allergies Allergy/AdvReac Type Severity Reaction Status Date / Time No Known Allergies Allergy Verified 11/29/24 10:45 Home Medication ?Medication ?Instructions ?Recorded levothyroxine 175 mcg capsule 175 mcg PO DAILY #90 cap s 08/28/21 docusate sodium 100 mg capsule 100 mg PO BID 11/01/24 (Colace) lidocaine HCl 2 % mucosal jelly 1 applic topical TID P RN 11/01/24 hydrocodone 5 mg-acetaminophen 325 1 tab PO Q6H PRN pa in #20 tabs 11/19/24 mg tablet Current Visit Medications: Current Medications Generic Name Dose Route Start Last Admin Trade Name Freq PRN Reason Stop Dose Admin Ringer's Solution 1,000 mls @ 80 mls/hr 11/29/24 06:00 11/29/24 11:04 IV 11/29/24 23:59 80 mls/hr INFUSION BARBARA Administration Cefazolin Sodium/Dextrose 2 gm in 50 mls @ 100 mls/hr 11/29/24 06:00 Ancef Duplex IVPB 11/29/24 23:59 PREOP BARBARA IV Miscellaneous Supplies 1 each 11/29/24 06:00 Iv Access IV 11/29/24 23:59 DIRECTED BARBARA Sodium Chloride 0 ml 11/29/24 06:00 Normal Saline Flush 10 Ml Syr IV 11/29/24 23:59 PRN PRN Sodium Chloride 0 ml 11/29/24 06:00 Normal Saline 10 Ml Vial IJ 11/29/24 23:59 DIRECTED PRN Sterile Water 0 ml 11/29/24 06:00 Water,Injection,Sterile 10 Ml Vial IJ 11/29/24 23:59 DIRECTED PRN PFSH Active Problems Active Problems: Problem Status Onset Code Rash and other nonspecific skin eruption Acute R21 Encounter for postoperative wound check Acute 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.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 Rectal polyp Acute K62.1 History of squamous cell carcinoma Acute Z85.89 Alcohol dependence, daily use Acute F10.20 Internal and external prolapsed hemorrhoids Acute K64.8 Mass of anus Acute K62.89 Smoker Acute ~06/2024 F17.200 Rectal mass Acute K62.89 Hepatic steatosis Acute K76.0 URI (upper respiratory infection) Acute J06.9 Positive colorectal cancer screening using Cologuard test Acute R19.5 Hypothyroidism Chronic E03.9 Alcoholism Acute F10.20 Medical History Medical History Thyroid cancer pt reports radiation and chemo at [facility], Pt unsure of year states more than 5 years ago Surgical History Surgical History Hx of colonoscopy with polypectomy (~10/2024) Exam under anesthesia Tobacco Smoking/Tobacco Use Status: Current-Occasional Tobacco Type: cigarettes Passive smoking exposure: Yes Second hand exposure: No Alcohol Alcohol Intake: current Alcohol intake frequency: 3 or more drinks per day Alcohol type: beer Substance Use Substance use: Never Substance use type: does not use Details: Per pt. states 6 beers/day Vital Signs and Lab Results Vital Signs Most Recent Vital Signs in EMR: Most Recent Vital Signs Temp Pulse Resp BP Pulse Ox 36.3 C L 111 H 20 159/97 H 98 11/29/24 10:48 11/29/24 10:48 11/29/24 10:48 11/29/24 10:48 11/29/24 10:48 Anesthesia Assessment and Plan Anesthesia History Personal History: No History of Anesthesia Complications Family History: No Family History of Anesthesia Complications Exercise Tolerance Exercise Tolerance: Metabolic Equivalents>4 Cardiac & Pulmonary Exam Cardiac Exam: Normal S1/S2 Heart Sounds Pulmonary Exam: Clear Bilateral Breath Sounds Implantable Cardiac Device Does patient have a Pacemaker or an ICD?: No Airway Exam Known Difficult Airway: No Mallampati Class: 2 Mouth Opening: Normal (> 3cm) Thyromental Distance: Greater than 3 cm Neck Range of Motion: Full ROM Neck Circumference: Normal Teeth Condition: Removable Dentures/Plates Upper and Removable Dentures/Plates Lower ASA Classification ASA Score: ASA 2 Emergency Case?: No NPO Status NPO Status: NPO Clears >2 hours, Solids >8 hours Anesthesia Plan Resuscitation Status: Full Code Anesthesia Technique: General Anesthesia Airway Planned: LMA Monitors Used: Standard Monitors Preoperative Comments:: 64 yo male for anal fulguration. Denies an health history changes since his last surgery. HR slightly elevated today, seems anxious to be here. Sig PMHx: hypothyroid (on replacement), occ smoker, daily EtOH. ECG: sinus, ? LAE. Approp NPO. Denies GERD. Previous Anes: - Anal fulguration, prop/ketamine, no issues.
[2024-11-29 11:32] VITALS: BMI 21.4
[2024-11-29] MEDS: ceFAZolin 2 GM/50 ML BAG IVPB (12:58)
[2024-11-29] MEDS: Bupivacaine 0.25% Pres-Free W/EPI 30 ML VIAL (13:34)
[2024-11-29] MEDS: Bupivacaine LIPOSOME/PF 133 MG/10 ML VIAL IJ (13:34)
[2024-11-29] MEDS: Bacitracin 30 GM TUBE (13:45)
--- NOTE | 2024-11-29 13:51 | W.PM.DSUDISC ---
Date of service: 11/29/24 Discharge Plan Disposition Patient Disposition: Home Condition: Stable Discharge Details Attending Provider: Marietta Strong Primary Care Provider: Jah Rees Recommendations for Follow Up Recommended tests to be ordered by follow up provider: None Home Meds and New Rx's Prescriptions: New hydrocodone-acetaminophen 5-325 mg tablet 1 tab PO Q6H PRN (Reason: pain) Qty: 30 0RF Continued lidocaine HCl 2 % jelly 1 applic topical TID PRN docusate sodium [Colace] 100 mg capsule 100 mg PO BID levothyroxine 175 mcg capsule 175 mcg PO DAILY Qty: 90 3RF Discontinued hydrocodone-acetaminophen 5-325 mg tablet 1 tab PO Q6H MDD 4 tabs PRN (Reason: pain) Qty: 20 0RF Discharge Instructions Instructions: Anal Wart Surgery, How to Do a Sitz Bath, Anogenital Wart Removal (DC) Additional Instructions: Shower anytime. Your anus will be numb for 8-72 hours, like last time. The pain will slowly increase and is expected to very sore for 1-2 weeks. Use sitz baths for relief and take the prescribed medicine only for severe pain. Use as little of the medicine as possible and try to space it out. Use less and less of it every day if you can. Swelling and spot bleeding is normal and expected. Keep the area clean and dry. Apply Desitin cream to the skin around the surgical site to avoid getting a rash again. Avoid sitting on your surgical site as much as possible. Lay on your stomach or your sides. Activity:: Activity as Tolerated Remove Dressings/Wound Care:: 24 hours Shower/Bathe:: 24 hours Diet:: As Tolerated Discharge Orders Discharge Orders: Discharge Order (Routine); Ordered 11/29/24 Ordered By: Marietta Strong DS: Diagnosis Discharge Diagnosis (1) Anal condyloma: Status: Acute
[2024-11-29 13:56] VITALS: BP 130/87; PULSE 81; RESP 20; TEMP 36.4; O2SAT 100
--- NOTE | 2024-11-29 14:01 | W.PM.OP ---
Operative Note Operative Note PRE-OP DIAGNOSIS: anal condyloma, anal pain POST-OP DIAGNOSIS: same PROCEDURE: Fulguration of anal condyloma SURGEON: Marietta Strong HEAD OF MAINTENANCE: Venecia Henriquez ANESTHESIA TYPE: Local By Surgeon and MAC Refer to Anesthesia Record ESTIMATED BLOOD LOSS: 10 PATHOLOGY: other (anal condyloma) COMPLICATIONS: None Patient's condition: stable Procedure Description: This patient is a 64-year-old male who is anal condyloma. He initially presented to me with overgrowth of a mass lesion on the anus, and he was taken for exam under anesthesia for diagnosis. Biopsies showed condyloma. Perianal and perineal skin rash was resolved with treatment but this did not resolve his discomfort. We elected to proceed with fulguration of the prominent anal condyloma that was tender on examination. Procedure was discussed in office, including a discussion about the procedure risks and benefits and alternatives and expectations. We discussed postoperative pain being severe until the area heals. We discussed the possibility that it may not resolve his pain. Informed consent was obtained and he was taken to the operating room on planned day of surgery. He was taken to the operating room. He was placed supine on the operating table. General anesthesia was induced and he was placed in lithotomy position with stirrups. The anus and perineum were clipped prepped and draped in the usual sterile fashion. Anal examination revealed the bulk of the tender condylomata in the posterior left quadrant of the anus. Local anesthetic was infiltrated into the skin around the lesions. Cautery used to fulgurate the condyloma from the anus. Care was taken to avoid the hemorrhoids and anal sphincter deep below the skin level. 3 large sized condylomata were passed off the field as specimen. Exparel and Marcaine were mixed together and injected as a perianal block. Point cautery was used for hemostasis and it was confirmed. Antibiotic ointment was applied to the clean dried skin. The patient was taken out of lithotomy position mesh underwear 4 x 4's and an ABD were placed. All sponge and instrument counts were correct at the end of the case. The patient tolerated the procedure well and transferred to the recovery area in stable condition. No complications. Date of Procedure: 11/29/24
--- NOTE | 2024-11-29 14:04 | W.ANESPOSTOP ---
Postoperative Evaluation Date, Time and Location Date Performed: 11/29/24 Time Performed: 14:04 Patient Location: Day Surgery Unit Vital Signs Most Recent Imported Vital Signs: Most Recent Vital Signs Temp Pulse Resp BP Pulse Ox 36.4 C L 81 20 130/87 100 11/29/24 13:56 11/29/24 13:56 11/29/24 13:56 11/29/24 13:56 11/29/24 13:56 Assessment Mental Status: Awake (Alert & Oriented to Patient Baseline) Airway and Respiratory Function: Patent airway with normal (patient baseline) respiratory exam Cardiovascular Function: Hemodynamically Stable Hydration Status: Adequately Hydrated Nausea & Vomiting: No Nausea or Vomiting Pain: Pt. Denies Any Pain Peripheral Nerve Block: Patient did not receive a nerve block
[2024-11-29 14:18] VITALS: BP 144/91; PULSE 74; RESP 20; TEMP 36.4; O2SAT 97
== END 2024-11-29 14:36 | disposition home or self-care (01) ==
PROVIDERS: PCP Family Medicine; Visit Provider Surgery
PROC: (CPT 17110; principal; 2024-11-29 11:15)
DX: A63.0 Anogenital (venereal) warts (principal); F10.20 Alcohol dependence, uncomplicated; K76.0 Fatty (change of) liver, not elsewhere classified; F17.210 Nicotine dependence, cigarettes, uncomplicated; E89.0 Postprocedural hypothyroidism
CPT/HCPCS: 46916; 88305; 88304; J0666; J0690; J1100; J2003; J2250; J2405; J2704; J3010

== ENCOUNTER → 2024-12-15 12:56 | Outpatient (BNVA) | payer MEDICARE, SELFPAY | PROVIDERS: PCP Family Medicine; Referring Provider Family Medicine; Visit Provider Surgery | DX: Z48.89 Encounter for other specified surgical aftercare (principal); A63.0 Anogenital (venereal) warts | CPT/HCPCS: 99024 ==

== ENCOUNTER → 2025-01-12 10:41 | Outpatient (BNVA) | payer MEDICARE, SELFPAY | PROVIDERS: PCP Family Medicine; Referring Provider Family Medicine; Visit Provider Surgery | DX: K60.2 Anal fissure, unspecified (principal); K62.89 Other specified diseases of anus and rectum; K59.09 Other constipation | CPT/HCPCS: 99213 ==

== ENCOUNTER → 2025-01-26 10:00 | Outpatient (BNVA) | payer MEDICARE, SELFPAY | PROVIDERS: PCP Family Medicine; Referring Provider Family Medicine; Visit Provider Surgery | DX: K60.2 Anal fissure, unspecified (principal); A63.0 Anogenital (venereal) warts; K62.89 Other specified diseases of anus and rectum; K59.09 Other constipation | CPT/HCPCS: 99214 ==

== ENCOUNTER → 2025-02-16 10:39 | Outpatient (BNVA) | payer MEDICARE, SELFPAY | PROVIDERS: PCP Family Medicine; Referring Provider Family Medicine; Visit Provider Surgery | DX: K60.2 Anal fissure, unspecified (principal); A63.0 Anogenital (venereal) warts; K62.89 Other specified diseases of anus and rectum; K59.09 Other constipation | CPT/HCPCS: 99213 ==